=== PATIENT | female | born 1935 | race Caucasian/White ===

== ENCOUNTER 2025-05-31 01:06 | Emergency (ER) | payer MEDICARE, SELFPAY ==
[2025-05-31 01:08] VITALS: BP 177/81; PULSE 83; RESP 18; O2SAT 99
--- NOTE | 2025-05-31 01:11 | W.ED.GENAD ---
Discharge Plan Discharge Details Chief Complaint: [facility] ED Provider: Derrick Lackey General Mode of arrival: EMS. Date/Time Provider Initiated Documentation: 05/31/25 01:11. Limitations to Documentation: no limitations. Information obtained by: patient, EMS and RN notes reviewed. HPI Narrative: Patient brought to ED by ambulance after [place] police [place] the [place]. Patient reporting that she is coming from [place] and was going to [place]. She states that she lives in [place]. She has no physical complaint other than being tired. Per EMS blood sugar was okay in the field. Police have apparently contacted the son in [place] who reports that she does have a history of dementia. Patient told the nurse that she was visiting her son at a base in [place] and was returning back home. She told me that she had stopped in [place] to go shopping. Was not able to tell me she was in [place]. She was able to tell me she was at the hospital. She denies any type of headache, chest pain, shortness of breath, abdominal pain, any physical complaint. Exam Narrative Exam Narrative: Const: WDWN elderly female in NAD. VS per triage. HEENT: NC/AT. Normal facial exam. Neck: Supple. Trachea midline. Lungs: Normal respiratory effort. Lungs are clear. Cor: RRR without murmur. Good radial pulses. Neuro: A+O x 2. Normal speech, mentation. Cranial nerves II - XII grossly intact. No gross motor or sensory deficit. Medical Decision Making Patient presenting to the ED by EMS after being pulled over by police who had condern for her driving. She is not intoxicated and is completely awake and alert. Police reporting that son states she does have dementia. Patient appears to be very good at confabulation and hiding it. Fingerstick was checked by EMS. I will check a urine but otherwise I do not think we need to pursue a deeper work up. Son contacted and will head from [place] in the morning. Will hold in ED to keep safe. PFSH Social History Smoking/Tobacco Use Status: Never Smoking risk assessment performed?: Yes Alcohol Intake: never
[2025-05-31 01:13] VITALS: TEMP 36.4
[2025-05-31 01:17] VITALS: RESP 18
--- NOTE | 2025-05-31 01:40 | NUR.NOTE ---
VSP states that the PTs vehicle is at [facility] Note:
[2025-05-31 07:13] VITALS: BP 164/64; PULSE 74; RESP 15; O2SAT 97
== END 2025-05-31 16:34 | disposition home or self-care (01) ==
PROVIDERS: Emergency Provider General Practice
DX: F03.90 Unspecified dementia, unspecified severity, without behavioral disturbance, psychotic disturbance, mood disturbance, and anxiety (principal)
CPT/HCPCS: 99283; 99281